=== PATIENT | female | born 1965 | race Two or more races ===

== ENCOUNTER 2018-03-26 18:08 | Emergency (ER) | payer BC ==
--- NOTE | 2018-03-26 18:13 | NUR ---
PT C/C NECK PAIN. S/P FALL FROM [place]. STABLE CONDITION. VSS. NEG ACUTE DISTRESS. SAFETY MEASURES IN PLACE.
[2018-03-26] MEDS ORDERED: ONDANSETRON 4 MG TAB.RAPDIS ONE (18:54)
[2018-03-26] MEDS ORDERED: oxyCODONE/APAP (5/325 MG) 1 UDTAB TABLET ONE (18:54)
[2018-03-26] MEDS ORDERED: KETOROLAC TROMETHAMINE INJ 30 MG/ML VIAL ONE (18:54)
[2018-03-26] MEDS ORDERED: oxyCODONE/APAP (5/325 MG) 1 UDTAB TABLET PO ONE (19:00)
[2018-03-26] MEDS ORDERED: KETOROLAC TROMETHAMINE INJ 60 MG/2 ML VIAL IM ONE (19:00)
[2018-03-26] MEDS ORDERED: ONDANSETRON 4 MG TAB.RAPDIS SL ONE (19:00)
--- NOTE | 2018-03-26 19:18 | NUR ---
PT STABLE CONDITION. VSS. NEG DISTRESS. ENDORSED TO [place]
[2018-03-26 20:03] VITALS: BP 127/90
== END 2018-03-26 20:04 | disposition home or self-care (01) ==
LOC: ER 18:10
DX: S19.9XXA Unspecified injury of neck, initial encounter (principal); F31.9 Bipolar disorder, unspecified; E03.9 Hypothyroidism, unspecified; W22.8XXA Striking against or struck by other objects, initial encounter; Y93.89 Activity, other specified; Y92.89 Other specified places as the place of occurrence of the external cause; Y99.8 Other external cause status
CPT/HCPCS: 72125-TC; A4606; J1885; L0172; Q0162; Z7610